=== PATIENT | female | born 2000 | race Caucasian/White ===

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

== ENCOUNTER 2021-12-24 18:13 | Emergency (ER) | payer OTHER ==
[~2021-12-24] VITALS: Ht 167.6 cm; Wt 102.5 kg
[~2021-12-24 18:13] MED LIST: ZOLOFT25 MG PO
--- NOTE | 2021-12-25 17:50 | EKG ---
[facility] [address] [facility] [place] [address] Signed Normal sinus rhythm with sinus arrhythmia Normal ECG No previous ECGs available Confirmed by MARTHA DUVALL MD ([id number]) on 12/25/2021 5:50:47 PM Electronically Signed By: MARTHA DUVALL MD 12/25/21 1750 PATIENT NAME: SERENITY POLLARD [facility] Electrocardiogram DATE OF : [birth year] PHYSICIAN: MARTHA DUVALL MD REPORT #: [id number] REPORT IS CONFIDENTIAL AND NOT TO BE RELEASED WITHOUT AUTHORIZATION
== END 2021-12-24 22:00 | disposition home or self-care (01) ==
LOC: ED 18:13
DX: R07.89 Other chest pain (principal)
CPT/HCPCS: 36415; 71045; 80053; 81001; 84484; 84703; 85025; 85379; 87088; 93005; 93010; 96374; 96375; 99285-25; J1885; J2405

== ENCOUNTER 2023-04-01 17:11 | Inpatient (IN) | payer BC, OTHER ==
[~2023-04-01] VITALS: Ht 167.6 cm; Wt 103.5 kg
[2023-04-01 17:53] LABS: BASOPHILS 0.4 % (0-2); EOSINOPHILS 4.4 % (0-6); HEMATOCRIT 39.8 % (35.0-50.0); HEMOGLOBIN 12.9 g/dL (12.0-18.0); LYMPHOCYTES 17.9 % (24-44); MCHC 32.5 g/dl (30-36); MCV 86.1 fl (81-99); MONOCYTES 3.9 % (0-12); NEUTROPHILS 73.4 % (39-80); PLATELET COUNT 355 K/uL (140-440); RBC 4.62 M/ul (4.3-5.7); RDW 13.2 (10.5-15.0)
[2023-04-01] MEDS ORDERED: APRI1 EACH PO (17:53)
[2023-04-01 18:06] LABS: ALBUMIN/GLOBULIN RATIO 0.61 (1.1-2.4); ANION GAP 12.9 (7-21); BILIRUBIN, TOTAL 0.2 ng/dL (0.2-1.0); BUN/CREATININE RATIO 13.92 (6.0-28.6); CALCIUM 8.8 mg/dL (8.5-10.1); CREATININE, SERUM 0.79 mg/dL (0.55-1.02); POTASSIUM 3.9 mmol/L (3.5-5.1); PROTEIN, TOTAL 7.9 g/dL (6.4-8.2)
[2023-04-01 18:10] LABS: BILIRUBIN, URINE NEGATIVE (negative); BLOOD/HGB, URINE TRACE-I (Negative); KETONE, URINE NEGATIVE (Negative); LEUK ESTERASE, URINE NEGATIVE (negative); NITRITE, URINE NEGATIVE (negative); PH, URINE 5.5 (5-7)
[2023-04-01] MEDS ORDERED: LACTATED RINGER'S 1,000 ML IV SCH ×2 (18:15→20:30)
[2023-04-01 18:21] LABS: BACTERIA, URINE NONE SEEN /hpf (negative); CASTS, URINE NONE SEEN \\lpf; COLLECTION TYPE, URINE CLEAN CATCH; CRYSTALS, URINE NONE SEEN (0-1+); EPITHELIAL CELLS, URINE SQUAMOUS 2+ /lpf (0-1+); RED BLOOD CELLS, URINE 0-1 /hpf (0-5); REFLEX CULTURE, URINE No (No); WHITE BLOOD CELLS, URINE 0-1 /HPF (0-5)
[2023-04-01] MEDS ORDERED: AMP/SULBACTAM SOD 3 GM VIAL IV ONE (18:22)
[2023-04-01] MEDS ORDERED: AMP/SULBACTAM SOD 3 GM in SODIUM CHLORIDE 0.9% 100 ML IV ONE (18:30)
[2023-04-01 18:57] VITALS: BP 144/93
[2023-04-01] MEDS ORDERED: ondansetron HCL 4 MG/2 ML VIAL IV PRN ×2 (19:30→20:30)
[2023-04-01] MEDS ORDERED: DEXTROSE 5% - LACTATED RINGERS 1,000 ML IV SCH (19:30)
[2023-04-01] MEDS ORDERED: HYDROmorphone HCL 1 MG/ML SYR IV PRN (19:30)
--- NOTE | 2023-04-01 19:45 | NUR ---
PATIENTS ADMISSION COMPLETE. PATIENT DENIES ANY NAUSEA. PATIENT RATES PAIN AT A 2/10 IN RLQ AND DENIES THE NEED FOR INTERVENTION AT THIS TIME. PATIENT UP TO BR IND. PATIENT BACK IN BED RESTING. PATIENTS SIGNIFICANT OTHER IS AT THE BEDSIDE. ALL QUESTIONS ANSWERED. PATIENT DENIES ANY NEEDS AT THIS TIME. CALL LIGHT IN REACH.
[2023-04-01] MEDS ORDERED: MORPHINE SULFATE 10 MG/ML VIAL IV PRN (20:30)
[2023-04-01] MEDS ORDERED: KETOROLAC TROMETHAMINE 30 MG/ML VIAL IV PRN (20:30)
[2023-04-01] MEDS ORDERED: FAMOTIDINE 20 MG/ 2 ML VIAL IV SCH (21:00)
[2023-04-01] MEDS ORDERED: HEParin SOD (PORCINE) 5,000 UNIT/0.5 ML SYR SUB-Q SCH (21:00)
[2023-04-01 21:12] VITALS: BP 137/88
--- NOTE | 2023-04-01 21:35 | NUR ---
PATIENT IS RESTING IN BED. PM MEDS GIVEN PER ORDER. PATIENT DENIES ANY PAIN OR NAUSEA. PATIENT DENIES ANY FURTHER NEEDS. CALL LIGHT IN REACH.
--- NOTE | 2023-04-01 23:44 | NUR ---
PATIENT IS RESTING IN BED WITH EYES CLOSED, RR 15. CALL LIGHT IN REACH.
[2023-04-02] VITALS (10 sets, daily range): BP systolic 112–172; BP diastolic 55–78
--- NOTE | 2023-04-02 00:11 | NUR ---
PATIENT IS RESTING IN BED WITH EYES CLOSED, RR 17. CALL LIGHT IN REACH. IV INFUSING PER ORDER
[2023-04-02] MEDS ORDERED: AMP/SULBACTAM SOD 3 GM in SODIUM CHLORIDE 0.9% 100 ML IV SCH (02:00)
--- NOTE | 2023-04-02 02:01 | NUR ---
PATIENTS SCHEDULED MEDS GIVEN PER ORDER. PATIENT DENIES ANY PAIN OR NAUSEA. PATIENT UP TO BR IND. PATIENT ABLE TO VOID. PATIENT IS BACK IN BED RESTING. PATIENT DENIES ANY FURTHER NEEDS. CALL LIGHT IN REACH.
[2023-04-02] MEDS ORDERED: AMP/SULBACTAM SOD 3 GM VIAL IV ONE (02:09)
--- NOTE | 2023-04-02 04:05 | NUR ---
PATIENT IS RESTING IN BED WITH EYES CLOSED, RR 16. CALL LIGHT IN REACH. IV INFUSING PER ORDER.
--- NOTE | 2023-04-02 07:15 | NUR ---
Spoke with Annabella and her spouse, Steve. She waiting for surgery today. She states they live in a house with minimal steps. There are no issues getting in or out of the home. They both work and she does not use any DME. Spouse wanting to know if he should take a few days off to be home with pt. I suggested he wait to decide until after the surgery and he speaks with Dr. Zarate. They deny any needs or issues and plan for pt to dc to home when cleared following surgery.
--- NOTE | 2023-04-02 07:35 | NUR ---
report from Maximo FISCHER, pt resting in room denies needs at this time, at side. discussed plan of care and upcoming surgery. vitals taken, jewlery removed, call light in reach - confirm npo.
--- NOTE | 2023-04-02 08:59 | NUR ---
abx fusing in iv and pt up for pre op wipe down and linen change. denies needs.
--- NOTE | 2023-04-02 09:00 | NUR ---
PRESURGICAL WIPEDOWN COMPLETE USING CHG WIPES. SDS ON. AT BEDSIDE. JEWELRY IN LOCKBOX. CALL LIGHT IN EASY REACH
[2023-04-02] MEDS ORDERED: LACTATED RINGER'S 1,000 ML IV ONE (09:15)
[2023-04-02] MEDS ORDERED: ondansetron HCL 4 MG/2 ML VIAL ONE (09:15)
[2023-04-02] MEDS ORDERED: SUGAMMADEX SODIUM 200 MG/2 ML ML ONE (09:15)
[2023-04-02] MEDS ORDERED: ROCURONIUM BROMIDE 50 MG/5 ML SYR ONE ×2 (09:15→10:29)
[2023-04-02] MEDS ORDERED: FAMOTIDINE 20 MG/ 2 ML VIAL ONE (09:15)
[2023-04-02] MEDS ORDERED: SUCCINYLCHOLINE IN 0.9% NACL 200 MG/10 ML SYRINGE ONE ×2 (09:15→11:27)
[2023-04-02] MEDS ORDERED: MIDAZOLAM HCL 2 MG/2 ML VIAL ONE (09:15)
[2023-04-02] MEDS ORDERED: LIDOCAINE HCL 4% 5 ML AMP ONE (09:15)
[2023-04-02] MEDS ORDERED: KETOROLAC TROMETHAMINE 30 MG/ML VIAL ONE (09:15)
[2023-04-02] MEDS ORDERED: DEXAMETHASONE SOD PHOS 4 MG/ML VIAL ONE (09:15)
[2023-04-02] MEDS ORDERED: propofoL 200 MG/20 ML VIAL ONE (09:15)
[2023-04-02] MEDS ORDERED: fentaNYL citrate 100 MCG/2 ML VIAL ONE (09:15)
[2023-04-02] MEDS ORDERED: METOCLOPRAMIDE HCL 10 MG/2 ML SDV ONE (09:15)
--- NOTE | 2023-04-02 09:25 | NUR ---
PT TO OR WITH Bernice huertsa, strait tubing with abx fusing left arm and scds on in pt own bed. dr cooley here, press shop supervisor azalea noted pt to return post op to room 116 med surg. belongings including jewlery in blue cup to room 116. accompanied pt to surg. dept.
[2023-04-02] MEDS ORDERED: droPERidol 5 MG/2 ML VIAL ONE (09:59)
--- NOTE | 2023-04-02 10:19 | NUR ---
UR CLINICAL REVIEW 2 [place] FOR [facility] PPO INPT 04/01/23 @ 1823 YES ORDER MATCHES AWAITING AUTH REVIEW DISCHARGE TO HOME WHEN STABLE 04/04/23
[2023-04-02] MEDS ORDERED: MORPHINE SULFATE 10 MG/ML VIAL ONE (10:20)
[2023-04-02] MEDS ORDERED: SEVOFLURANE 250 ML BTL ONE (10:29)
--- NOTE | 2023-04-02 10:39 | NUR ---
ROUNDS. PT GONE FOR PROCEDURE. PROVIDED PRAYER. LEFT PRAYER CARD AND GUIDEPOST.
[2023-04-02] MEDS ORDERED: droPERidol 5 MG/2 ML VIAL IV PRN (10:45)
[2023-04-02] MEDS ORDERED: NALOXONE HCL 0.4 MG SYR IV PRN (10:45)
[2023-04-02] MEDS ORDERED: ondansetron HCL 4 MG/2 ML VIAL IV PRN (10:45)
[2023-04-02] MEDS ORDERED: MORPHINE SULFATE 10 MG/ML VIAL IV PRN (10:45)
[2023-04-02] MEDS ORDERED: fentaNYL citrate 100 MCG/2 ML VIAL IV PRN (10:45)
[2023-04-02] MEDS ORDERED: PROCHLORPERAZINE EDISYLATE 10 MG/2 ML VIAL IV PRN (10:45)
[2023-04-02] MEDS ORDERED: IBLOOD GLUCOSE TEST STRIP 1 EA TEST VI PRN (10:45)
[2023-04-02] MEDS ORDERED: METOCLOPRAMIDE HCL 10 MG/2 ML SDV IV PRN (10:45)
--- NOTE | 2023-04-02 11:59 | NUR ---
REPORT RECEIVED FROM AALIYAH PADILLA IN CCU.
--- NOTE | 2023-04-02 12:28 | NUR ---
04/02/23 1228 Emma King 1201 PT ARRIVED IN PACU NON RESPONSIVE TO NOXIOUS STIMULI WITH OPA IN PLACE. CHIN LIFT HELD BY RN. 1217 PT REACTIVE. OPA REMOVED. 1225 OXYGEN REMOVED. SATS 94% ON RA. NO C/O'S. RILEY INTACT WITH BULB SUCTION.
[2023-04-02] MEDS ORDERED: OXYCODONE/APAP 7.5/325 TAB PO PRN (13:15)
[2023-04-02] MEDS ORDERED: ACETAMINOPHEN 500 MG TAB PO PRN (13:15)
[2023-04-02] MEDS ORDERED: IBUPROFEN 600 MG TAB PO PRN (13:15)
--- NOTE | 2023-04-02 13:37 | HP ---
[facility] [address], [place] [address] Signed ADMISSION DATE: 04/01/2023 REASON FOR ADMISSION: Acute perforated appendicitis. 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 She is accompanied by her , a local nursery manager. The patient has had essentially months of persistent right lower abdominal pain, which has not really improved. She has had no sign of systemic toxicity or other manifestations of the illness. She is a patient of OBINNA Ivey. She underwent a CT scan of the abdomen today under the direction of OBINNA Ivey, which showed findings highly consistent with ruptured appendicitis with a 4.6 cm phlegmon or developing abscess in the right lower abdomen. My examination of the films shows marked inflammation in the area of the cecum, likely a posterior positioned appendix. Close review of report also describes the inflammation posterior to the cecum in the process contiguous with the base of the appendix with mild cecal wall thickening and mildly dilated distal ileum, which was likely reactive. She is admitted for further evaluation and care. PAST MEDICAL HISTORY: Rather unremarkable. She has not had abdominal surgery in the past. Her test is negative at this time. Last menstrual period was March 23, 2023. She has had tonsillectomy in the past. SOCIAL HISTORY: She has never smoked. Denies alcohol use and denies any illicit drug use. 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 They have no children. They have been about a year. ALLERGIES: She has no known drug allergies. MEDICATIONS: Her only medication is a control pill. REVIEW OF SYSTEMS: She denies any shortness of breath or chest pain. She currently is not distressed by pain particularly. Electronically Signed By: JOSEPHINE SLOAN MD 04/02/23 1337 PATIENT NAME: SERENITY SALAZAR HISTORY AND PHYSICAL DATE OF : 00 REPORT #: [id number] PHYSICIAN: JOSEPHINE SLOAN MD PCP: KARINA DAMON NP REPORT IS CONFIDENTIAL AND NOT TO BE RELEASED WITHOUT AUTHORIZATION [facility] [address], [place] [address] Signed PHYSICAL EXAMINATION: GENERAL: Pleasant white woman who does not look systemically toxic. VITAL SIGNS: Initial pulse was 112, temperature 98.2, blood pressure 142/82, respirations 18, O2 saturation 98% on room air. NECK: Trachea is midline. CHEST: Clear. HEART: Regular without murmur. ABDOMEN: Obese, but generally soft. Rovsing sign is positive. She does have tenderness at McBurney's point, but is not severe. Obturators sign is equivocal. Heel tap is equivocal. EXTREMITIES: Show no clubbing, cyanosis, or edema. LABORATORY DATA: As shown notably show white count of 11.8, hematocrit 39.8, platelets 355,000. Chem profile essentially normal. Urinalysis essentially negative. ASSESSMENT AND PLAN: It is highly probable the patient has had chronic appendicitis for a number of weeks and possibly even months and likely the appendix is in the retrocecal position. She has progressed to what is likely a necrotic appendix with perforation and inflammatory fluid in the region. Central presentation is commonly subtle and without profound peritoneal findings. We discussed this in detail with the use of illustrations on the white board. She has been initiated on Unasyn antibiotic, made n.p.o. and fluids administered. Under the circumstances, we will plan to do laparoscopy and hopefully a laparoscopic resection of the appendix and likely placement of drain tomorrow. An open procedure may be required. I discussed with her the risk of bleeding, infection, need for open surgery, need for prolonged antibiotic therapy, and of course the possibility, however, remote of an inability to provide appendectomy, but provide only drainage if tissues are too distorted and appendix cannot be readily identified. This would be unlikely, it is admitted. She understands all this and wished to proceed. MD MARTIN [place]/ARRONL /[id number] Electronically Signed By: JOSEPHINE SLOAN MD 04/02/23 1337 PATIENT NAME: SERENITY SALAZAR HISTORY AND PHYSICAL DATE OF : 00 REPORT #: [id number] PHYSICIAN: JOSEPHINE SLOAN MD PCP: KARINA DAMON NP REPORT IS CONFIDENTIAL AND NOT TO BE RELEASED WITHOUT AUTHORIZATION [facility] [address] [place] [address] Signed cc: MD Karina Wilkerson FNP Copies: SILVESTRE NICK MD ~ Electronically Signed By: JOSEPHINE SLOAN MD 04/02/23 1337 PATIENT NAME: SERENITY SALAZAR [facility] HISTORY AND PHYSICAL DATE OF : 00 REPORT #: [id number] PHYSICIAN: JOSEPHINE SLOAN MD PCP: KARINA DAMON NP REPORT IS CONFIDENTIAL AND NOT TO BE RELEASED WITHOUT AUTHORIZATION
--- NOTE | 2023-04-02 14:14 | NUR ---
FULL ASSESSMENT COMPLETE AND DOCUMENTED IN THE CHART. PATIENT IS DROWSY AND WANTING TO SLEEP. PATIENT IS ON ROOM AIR WITH CPOX AT THE BEDSIDE. PATIENT LUNG SOUNDS ARE CLEAR BILATERALLY IN ALL LUNG BOYD. CARDIAC ASSESSMENT WITH NORMAL S1 AND S2. RADIAL PULSES ARE STRONG BILATERALLY. PATIENT WITH SCDS ON. BOWEL TONES ARE ACTIVE IN ALL FOUR QUADRANTS. LAP SITES WITH SUTURES AND DRY DRAINAGE. TWO DRESSINGS ON THE LEFT SIDE OF THE ABDOMEN ARE CLEAN AND DRY. RILEY DRAIN IS IN PLACE AND DRAINING SANGUINOUS FLUID AT THIS TIME. PATIENT WITH PAIN RATED 2/10 IN THE ABDOMEN AND NOT REQUESTING PAIN MEDICATION AT THIS TIME. PATIENT SENSATION IS INTACT. PATIENT WITH NO COMPLAINTS OF NUMBNESS AND TINGLING. PATIENT IV SITES ARE CLEAN, DRY, AND INTACT. PATIENT IV ON THE RIGHT HAND IS SALINE LOCKED. IV IN THE LAC HAS CONTINUOUS FLUIDS AT THIS TIME. PATIENT STATED NO FURTHER NEEDS AT THIS TIME. CALL LIGHT AND PERSONAL BELONGINGS ARE WITHIN REACH. CALL LIGHT PERSONAL BELONGINGS ARE WITHIN REACH.
--- NOTE | 2023-04-02 14:27 | NUR ---
SECOND SET OF POST OP VITALS ARE COMPLETE AND DOCUMENTED IN THE CHART.
--- NOTE | 2023-04-02 16:07 | NUR ---
PATIENT GIVEN PRN TYLENOL FOR PAIN. PATIENT ABLE TO AMBULATE TO THE BATHROOM AND ABLE TO VOID. RILEY DRAIN EMPTIED. IV FLUIDS INFUSING AT THIS TIME. PATIENT BLINDS OPEN TO ALLOW NATURAL LIGHT. PATIENT WITH COMPLAINTS OF THROAT FEELING "NUMB OR SORE". PATIENT EDUCATED ON THE USE OF IS AND HOW THE THROAT CAN BE SORE AFTER A PROCEDURE. CPOX IS AT THE PATIENTS BEDSIDE. PATIENT EXPRESSED UNDERSTANDING. PATIENT ABLE TO SWALLOW TYLENOL WITH NO DIFFICULTY. PATIENT EDUCATED ON THE IMPORTANCE OF WALKING LATER THIS EVENING. PATIENT EXPRESSED UNDERSTANDING. PATIENT STATED NO FURTHER NEEDS AT THIS TIME. CALL LIGHT AND PERSONAL BELONGINGS ARE WITHIN REACH.
--- NOTE | 2023-04-02 16:25 | NUR ---
PATIENT IS SITTING UPRIGHT IN BED. PATIENT STATED HER THROAT FEELS BETTER AFTER ASKING. PATIENT STATED NO FURTHER NEEDS AT THIS TIME. CALL LIGHT AND PERSONAL BELONGINGS ARE WITHIN REACH.
--- NOTE | 2023-04-02 18:49 | NUR ---
PATIENT AMBULATED IN THE HALLWAY A BIG LAP. PATIENT TOLERATED WELL. PATIENT RATED PAIN A 3/10. PATIENT STATED SHE HAD THE MOST PAIN WHEN SHE GOT BACK INTO BED. PATIENT IS AT THE BEDSIDE. PATIENT STATED NO FURTHER NEEDS AT THIS TIME. CALL LIGHT AND PERSONAL BELONGINGS ARE WITHIN REACH.
--- NOTE | 2023-04-02 19:52 | NUR ---
REPORT RECEIVED FROM DAY SHIFT RN. PATIENT RESTING IN BED WITH AT BEDSIDE. PATIENT HAS NO CURRENT NEEDS. CALL LIGHT IN REACH.
--- NOTE | 2023-04-02 20:45 | NUR ---
PATIENT RESTING IN BED. VS AND I&Os OBTAINED AND RECORDED. SCHEDULED MEDICATION ADMNISTERED. PATIENT UP TO BATHROOM INDEPENDENTLY TO VOID. IV ABX INFUSING PER ORDER. PATIENTS IN ROOM. PATIENT LAP SITES HAVE MINIMAL DRAINAGE. NEW GOWN PROVIDED. PATIENT HAS NO FURTHER NEEDS. CALL LIGHT IN REACH.
--- NOTE | 2023-04-02 21:40 | NUR ---
PATIENT RESTING IN BED WITH A BEDSIDE. ASSESSMENT COMPLETE. LAP SITES WITH MINIMAL DRAINAGE. RILEY DRAIN, DRAINING RED COLORED FLUID. WARM BLANKET PROVIDED. PATIENT REPORTS NO FURTHER NEEDS. CALL LIGHT IN REACH. PATIENT EDUCATED TO CALL IF SHE NEEDS ANYTHING.
--- NOTE | 2023-04-02 23:32 | NUR ---
PATIENT RESTING IN BED ON BACK WITH EYES CLOSED. RESPIRATIONS EVEN AND UNLABORED. CALL LIGHT IN REACH.
[2023-04-03] VITALS (8 sets, daily range): BP systolic 113–128; BP diastolic 67–77
--- NOTE | 2023-04-03 00:14 | NUR ---
CALL LIGHT ANSWERED. IV PUMP ALARMING. NEW BAG IV FLUID INFUSING PER ORDER. PATIENT REPORTS NO FURTHER NEEDS. CALL LIGHT IN REACH.
--- NOTE | 2023-04-03 02:10 | NUR ---
PATIENT RESTING IN BED. VS AND I&Os OBTAINED AND RECORDED. NEW BAG IV ABX INFUSING PER ORDER. PATIENT UP TO BATHROOM INDEPENDENTLY TO VOID. PATIENT BACK TO BED. SCDs IN PLACE. ASSESSMENT COMPLETE. PATIENT REPORTS "TOLERABLE PAIN". PATIENT SAYS PAIN IN WORSE WITH MOVEMENT. PATIENT REPORTS NO FURTHER NEEDS. CALL LIGHT IN REACH.
--- NOTE | 2023-04-03 03:50 | NUR ---
PATIENT RESTING IN BED ON BACK WITH EYES CLOSED. RESPIRATIONS EVEN AND UNLBABORED. CALL LIGHT IN REACH.
--- NOTE | 2023-04-03 04:45 | NUR ---
PATIENT RESTING IN BED WITH EYES CLOSED. RESPIRATIONS EVEN AND UNLABORED. CALL LIGHT IN REACH.
--- NOTE | 2023-04-03 06:37 | NUR ---
PATIENT RESTING IN BED. PATIENT UP TO BATHROOM INDEPENDENTLY TO VOID. PATIENT BACK TO BED. VS AND I&Os OBTAINED AND RECORDED. PATIENT REPORTS 6/10 PAIN IN ABD. PRN PAIN MEDICATION ADMINISTERED. FRESH WATER PROVIDED. IN ROOM. PATIENT HAS NO FURTHER NEEDS. CALL LIGHT IN REACH.
--- NOTE | 2023-04-03 07:43 | NUR ---
PT RESTING IN BED, EYES OPENED. RESTING IN CHAIR NEXT TO BED. PT STATES PAIN THIS MORNING IS MUCH BETTER. DENIES ANY NEEDS AT THIS TIME. APPEARS COMFORTABLE. ALL PT CARE NEEDS MET AT THIS TIME. CALL LIGHT WITHIN REACH.
--- NOTE | 2023-04-03 09:59 | NUR ---
PT SITTING UP IN CHAIR WATCHING TV AT THIS TIME. (R)HAND IV REMOVED, PAINFUL WITH FLUSHING/MOVEMENT. IV FLUIDS INFUSING AT THIS TIME. PT STATES SHE WALKED A LAP AROUND THE HOSPITAL UNIT. PAIN 2/10 AT THIS TIME, DENIES NAUSEA. ALL PT CARE NEEDS MET, DENIES NEEDS AT THIS TIME. CALL LIGHT WITHIN REACH.
--- NOTE | 2023-04-03 10:07 | NUR ---
MED REC COMPLETE
[2023-04-03] MEDS ORDERED: CIPROFLOXACIN 500 MG TAB PO SCH (13:30)
[2023-04-03] MEDS ORDERED: metroNIDAZOLE 250 MG TAB PO SCH (15:00)
--- NOTE | 2023-04-03 15:24 | NUR ---
PT SITTING UP IN CHAIR, UPDATE GIVEN TO PT/ ABOUT DC PLANS FOR TOMORROW IT LOOKS LIKE. IV FLUIDS DC'D, TRANSITIONED TO ORAL ABX AND THOSE HAVE BEEN GIVEN. PT VOIDING WITHOUT ANY ISSUES, REINFORCED MD WOULD LIKE PT TO AMBULATE MUCH POSSIBLE IN THE HALLWAYS, INCREASE MOBILITY. ALL PT CARE NEEDS MET AT THIS TIME, CALL LIGHT WITHIN REACH.
--- NOTE | 2023-04-03 17:57 | NUR ---
PT STATES HER PAIN IS 4/10 AT THIS TIME, SLOWLY IMPROVING. C/O GAS PAIN, WARM PACK PROVIDED WITH WARM BLANKET, APPLIED TO (R) SHOULDER THE GAS PAIN IS RADIATING UP HER SHOULDER. EDUCATION PROVIDED TO PT REGARDING GAS PAIN POST-OP, ADVISED TO WALK THE HALLWAYS, PT STATES SHE HAS BEEN DOING LAPS IN ROOM THIS EVENING. PT UNDERSTANDS AND AGREES. ALL PT CARE NEEDS MET AT THIS TIME, CALL LIGHT WITHIN REACH.
--- NOTE | 2023-04-03 19:33 | NUR ---
REPORT RECEIVED FROM DAY SHIFT RN. PATIENT RESTING IN CHAIR WITH IN ROOM. WARM PACK PROVIDED. PATIENT HAS NO OTHER CURRENT NEEDS. CALL LIGHT IN REACH.
--- NOTE | 2023-04-03 20:27 | NUR ---
IN ROOM TO COLLECT VS AND I&O'S PER REQUEST OF PRIMARY RN. VSS, pt IN GOOD SPIRITS. QUESTIONS ANSWERED REGARDING RILEY DRAIN, 5MLS OUTPUT NOTED. SEROSANGUINEOUS IN COLOR. FRESH WATER PROVIDED TO BOTH pt AND , CALL LIGHT IN REACH. NO ADDITIONAL NEEDS OR CONCERNS VERBALIZED.
[2023-04-03] MEDS ORDERED: FAMOTIDINE 20 MG TAB PO SCH (21:00)
--- NOTE | 2023-04-03 21:00 | NUR ---
PATIENT RESTING IN CHAIR. SCEDULED MEDICATIONS ADMINISTERED. WARM PACK PROVIDED. ASSESSMENT COMPLETE. BOWEL TONES ACTIVE. ABD TENDER. PATIENT HAS NO FURTHER NEEDS. CALL LIGHT IN REACH. IN ROOM.
--- NOTE | 2023-04-03 22:30 | NUR ---
PATIENT RESTING IN BED ON BCAK WITH EYES CLOSED. RESPIRATIONS EVEN AND UNLABORED. AT BEDSIDE. CALL LIGHT IN REACH.
[2023-04-04 00:10] VITALS: BP 105/54
--- NOTE | 2023-04-04 00:43 | NUR ---
ROUNDING ON PATIENT. PATIENT SITTING ON EDGE OF BED STATING "I THOUGHT I WAS GOING TO PASS OUT". PATIENT REPORTED COMING BACK FROM THE BATHROOM WHEN THIS OCCURED. PATIENT THEN STATED "I THINK I AM GOING TO THROW UP". EMESIS BAG PROVIDED. PRN NAUSEA MEDICATION ADMINISTERED, SEE MAR. PATIENT BACK IN BED. VSS. REQUESTING BS CHECK. PATIENT BS 113. FRESH APPLE JUICE AND WATER PROVIDED. PRN PAIN MEDICAITON ADMINISTERED PER PATIENT REQUEST. NEW BAG IV FLUID INFUSING PER ORDER. NO FURTHER NEEDS. CALL LIGHT IN REACH.
--- NOTE | 2023-04-04 01:34 | NUR ---
PATIENT RESTING IN BED ON BACK WITH EYES CLOSED. RESPIRATIONS EVEN AND UNLABORED. CALL LIGHT IN REACH. RESTING IN CHAIR AT BEDSIDE.
--- NOTE | 2023-04-04 03:34 | NUR ---
PATIENT RESTING IN BED ON BACK. NO CURRENT NEEDS NOTED. CALL LIGHT IN REACH.
[2023-04-04 05:35] VITALS: BP 121/60
--- NOTE | 2023-04-04 05:38 | NUR ---
PATIENT RESTING IN BED. PATIENT UP TO BATHROOM WITH MINIMAL SBA TO VOID. PATIENT BACK TO BED. YOSELYN WELL. VS AND I&Os OBTAINED AND RECORDED. ASSESSMENT COMPLETE. PATIENT ABD DRESSING C/D/I. PATIENT RILEY DRAINED 5mL OF RED DRAINAGE. PATIENT HAS NO FURTHER NEEDS. AT BEDSIDE. CALL LIGHT IN REACH.
--- NOTE | 2023-04-04 06:37 | NUR ---
call light answered, pt up sba to bathroom to void and back to bed, voided 400mls. pt steady on feet and deneis dizzy/lightheadedness when asked-steady on feet. call light in reach. remains in room. no additional needs verbalized when asked. new heat pack also provided for gas pain in right shoulder.
--- NOTE | 2023-04-04 06:41 | NUR ---
THIS RN CALLED MD IN REGARDS OF PATIENTS IV FLUID ORDER. MD STATES TO CONTINUE IV FLUID AND TO "SALINE LOCK HER IF SHE TOLERATES BREAKFAST".
--- NOTE | 2023-04-04 08:45 | NUR ---
recieved pt report at 0720. pt was in bed with family in room. currently in bed with family. no concerns or requests at this time call light within reach
[2023-04-04 08:48] VITALS: BP 138/72
--- NOTE | 2023-04-04 11:07 | NUR ---
ROUNDS. PT IN BED; EXPRESSED POSITIVITY AND HOPEFULNESS. FACILITATED STORY-TELLING; LISTENED EMPATHETICALLY; OFFERED HOSPITALITY; PROVIDED PRAYER. PT EXPRESSED APPRECIATION.
[2023-04-04] MEDS ORDERED: CIPROFLOXACIN500 MG PO (11:37)
[2023-04-04] MEDS ORDERED: ACETAMINOPHEN500 MG PO (11:37)
[2023-04-04] MEDS ORDERED: METRONIDAZOLE250 MG PO (11:37)
[2023-04-04] MEDS ORDERED: IBUPROFEN600 MG PO (11:37)
--- NOTE | 2023-04-05 13:43 | DS ---
[facility] [address], [place] [address] Signed ADMISSION DATE: 04/01/2023 DISCHARGE DATE: 04/04/2023 REASON FOR ADMISSION: Perforated appendicitis (chronic) with retrocecal abscess. HISTORY OF PRESENT ILLNESS: This is a 22-year-old white woman, who has had at least two months of severe and progressive right lower abdominal pain. 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 She has had no sign of systemic toxicity. She does recount an episode two months previously with severe right lower abdominal pain, which she ignored and which ultimately became more tolerable. She was seen by OBINNA Ivey her primary provider who performed a CT scan which showed a 4.6 cm phlegmon or abscess in the retrocecal area of the right side. She was directed to the emergency room where she was thoroughly evaluated for this and found to have vague tenderness in the area and a white count of 11.8. Urinalysis was normal. It is notable that the patient has had persistent right-sided abdominal pain for at least two months. PERTINENT PHYSICAL EXAMINATION: GENERAL: On admission showed an obese white woman who does not look systemically toxic. VITAL SIGNS: Initial pulse was 112, temperature 98.2, blood pressure 142/82, respirations 18, O2 saturation 98% on room air. CHEST: Clear. HEART: Regular without murmur. ABDOMEN: Obese, but soft. Rovsing sign was positive. She does have tenderness at but not severe. Obturator sign is equivocal. Heel tap equivocal. HOSPITAL COURSE: She was given fluid resuscitation, Unasyn antibiotic and taken for operation on April 02, 2023. A laparoscopic approach was intended, though notably may have been converted to open operation, she was fully aware of that. She was found to have a dense firm phlegmon in the retrocecal area on the right side, so dense that the cecum and right colon could not be mobilized from a laparoscopic perspective and on that basis, she was converted to an open operation through a McBurney incision in the right lower quadrant. The operation was prolonged, complicated, and difficult, but ultimately the retrocecal area could be encountered showing a retroperitoneal abscess, chronic inflammatory change and dense matting of the appendix. Complete appendectomy was incidentally performed as well as placement of a drain in the area of the well-formed scar tissue area. Notably, her right ovary and tube were normal. Electronically Signed By: JOSEPHINE SLOAN MD 04/05/23 1343 PATIENT NAME: SERENITY SALAZAR DISCHARGE SUMMARY DATE OF : 00 REPORT #: [id number] PHYSICIAN: JOSEPHINE SLOAN MD PCP: LAURA DAMON NP REPORT IS CONFIDENTIAL AND NOT TO BE RELEASED WITHOUT AUTHORIZATION [address] [address] Signed She was maintained on Unasyn and transitioned to oral antibiotics Cipro and Flagyl. By the day of discharge, she is ambulating well, tolerating a regular diet. The drainage showing only serosanguineous fluid and no purulence. She will be discharged with a drain in place anticipating its removal in the coming week. She will additionally continue with Cipro and Flagyl antibiotics orally. She is encouraged to walk on a daily basis, but should lift no more than 20 pounds for the next two weeks. It is anticipated she will be going on a vacation in the [facility] later next week, which is certainly acceptable. DISCHARGE MEDICATIONS: Will include: 1. Cipro 500 mg p.o. b.i.d. #10. 2. Flagyl 250 mg p.o. t.i.d. #15. 3. Ibuprofen 600 mg p.o. q.6 hours as needed for pain, #30 . 4. Tylenol 500 mg two tablets p.o. q.6 hours as needed for pain #60. She will continue with her usual control pill on a daily basis. DISCHARGE DIAGNOSES: 1. 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 2. Obesity. FOLLOWUP PLAN: She will see me on next week for drain removal. MD MARTIN [place]/ARRONL /[id number] cc: OBINNA Ivey Electronically Signed By: JOSEPHINE SLOAN MD 04/05/23 1343 PATIENT NAME: SERENITY SALAZAR DISCHARGE SUMMARY DATE OF : 00 REPORT #: [id number] PHYSICIAN: JOSEPHINE SLOAN MD PCP: LAURA DAMON NP REPORT IS CONFIDENTIAL AND NOT TO BE RELEASED WITHOUT AUTHORIZATION [address] [address] Signed Lazarus Nick MD Copies: LAZARUS NICK MD ~ Electronically Signed By: JOSEPHINE SLOAN MD 04/05/23 1343 PATIENT NAME: SERENITY SALAZAR [facility] DISCHARGE SUMMARY DATE OF : 00 REPORT #: [id number] PHYSICIAN: JOSEPHINE SLOAN MD PCP: LAURA DAMON NP REPORT IS CONFIDENTIAL AND NOT TO BE RELEASED WITHOUT AUTHORIZATION
--- NOTE | 2023-04-05 13:43 | OR ---
[facility] [address], [place] [address] Signed DATE OF OPERATION: 04/02/2023 SURGEON: Josephine Sloan MD PREOPERATIVE DIAGNOSIS: Perforated retrocecal appendicitis, chronic pain (obesity). POSTOPERATIVE DIAGNOSES: 1. Retroperitoneal abscess secondary to chronic perforated retrocecal appendicitis. 2. Obesity. PROCEDURES: 1. Laparoscopy with conversion to open retroperitoneal abscess drainage. 2. Open appendectomy. 3. Placement of retroperitoneal drain. ANESTHESIA: General endotracheal, Josephine Sanford CRNA and local 10 mL of 0.25% Marcaine with epinephrine. 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 She has had several months of increasing and persistent unrelenting right lower abdominal pain. Her primary provider, OBINNA Ivey obtained a CT scan of the abdomen yesterday where she was noted to have a diagnosis of perforated retrocecal appendicitis. The patient is not systemically toxic, only chronically painful. She was admitted, given Unasyn antibiotic, fluid resuscitated now to undergo exploration of the retroperitoneum, drainage of abscess as appropriate, appendectomy as appropriate and so on. Laparoscopic approach will be attempted. The risk of bleeding, infection, failure to provide drainage, recurrent problems, and need for open procedure were reviewed with the patient and her in detail. They understand and wished to proceed. FINDINGS: A very dense process was noted in the retrocecal area. Despite every attempt to do so, a laparoscopic approach was simply not possible and on that basis, conversion to open operation was undertaken. This was a challenge as well, however. The dense process in the retrocecal area include a small amount of purulence for which Gram stain and cultures were obtained. Firm fibrotic dense matting of a retrocecal appendix to the retroperitoneum was noted. There was no clear evidence of malignancy in any way. Electronically Signed By: JOSEPHINE SLOAN MD 04/05/23 3603 PATIENT NAME: SERENITY SALAZAR OPERATIVE REPORT DATE OF : 00 REPORT #: [id number] PHYSICIAN: JOSEPHINE SLOAN MD PCP: KARINA DAMON NP REPORT IS CONFIDENTIAL AND NOT TO BE RELEASED WITHOUT AUTHORIZATION [facility] [address], [place] [address] Signed Complete appendectomy was performed and a drain placed after irrigation. There were no complications. Of special note, her right fallopian tube and ovary were not involved in the process and appeared to be free of any scarring, inflammation, or distortion. DESCRIPTION OF PROCEDURE: The patient was brought to the operating room, given a general endotracheal anesthetic. Preoperative antibiotic Unasyn was given. Sequential compression device stockings were used and heparin subcutaneously administered. The abdomen was prepared with chlorhexidine solution and draped sterilely. An infraumbilical incision was made and using an open Guicho cannula technique, the abdomen was entered and pneumoperitoneum achieved to a level of 14 mmHg with carbon dioxide gas. Intra-abdominal inspection showed no sign of ascites or carcinomatosis. There was no sign of inflammatory fluid in the right lower quadrant. An epigastric 12 mm port was then placed and the camera was placed to that site. With single hand manipulation, the right lower abdominal area was manipulated showing dense adhesions of small bowel to the right lower quadrant pelvic wall and the cecum similarly matted to the retroperitoneum. The mid right colon appeared reasonably soft. A 5 mm right lower quadrant incision and trocar was made and with two hand manipulation attempts to mobilize the cecum and small bowel were undertaken. Various approaches to the site were undertaken, but still the dense fibrotic process was simply not able to be mobilized with high hazard of retroperitoneal injury. On that basis, the trocars were removed and plans made for conversion to open operation. It was considered possible that a midline incision would be used, however, given her obesity, hazard of incisional hernia and so forth, a conventional McBurney's incision was deemed more advisable. The site of the appendix and cecum had been well delineated laparoscopically and a transverse incision was made in continuity with the right lower quadrant port site. Dissection was carried through the thick abdominal pannus with electrocautery. The external oblique, internal oblique and transversus layers were incised along the fibers. Subsequently, she did require transection of the portion of the right anterior rectus sheath and the rectus muscle for better exposure. The placement of the incision was optimal directly over the cecum in the process in question. Digital manipulation was undertaken showing very firm and fibrotic retroperitoneal process. Various maneuvers were used to more fully mobilize the cecum. Ultimately, the small bowel was freed from the abdominal wall as was the more proximal cecum. The appendix itself was not readily visible, but with palpation medially and in the retroperitoneum dense hard matted process could be identified. Using extreme care, the fibrotic adhesions associated with the cecum were freed and using blunt dissection, a slick fibrotic capsule to the process identified. Ultimately, the appendix could be identified and a small amount of purulence was noted. Gram stain and cultures were obtained. This would represent a retroperitoneal abscess with chronic perforated appendicitis. Electronically Signed By: JOSEPHINE SLOAN MD 04/05/23 1343 PATIENT NAME: SERENITY SALAZAR OPERATIVE REPORT DATE OF : 00 REPORT #: [id number] PHYSICIAN: JOSEPHINE SLOAN MD PCP: KARINA DAMON NP REPORT IS CONFIDENTIAL AND NOT TO BE RELEASED WITHOUT AUTHORIZATION [facility] [address], [place] [address] Signed With meticulous care, the appendix could be bluntly from the retroperitoneum ultimately identified fully and grasped with Annemarie clamp. Careful manipulation of the appendix from the retroperitoneum was undertaken ultimately identifying its mesoappendix which was quite firm and fibrotic, this was freed quite fully as well. The vessels within it had been thrombosed. At the very base of the appendix, which was rather narrow in contrast to the bulk of the appendix, which was firm and rubbery, reasonably normal tissue was identified. Two large clips were applied to the base of the appendix and the appendix was transected. A few small clips were applied to small blood vessels in the region as well. Irrigation was undertaken more fully. Complete appendectomy has been performed so far as can be told and the two clips are secured flushed at the base of the cecum in the appendiceal junction. Through a separate stab incision, a 7 mm flat Candido was placed in the firm fibrotic cavity and secured to the skin with nylon suture and later attached to bulb suction. Plans were then made for closure. After considerable irrigation and replacement of omentum over the right lower abdomen and inspection of the right ovary and tube finding this to be non-inflamed and not involved in the process at all, closure was undertaken. The posterior sheath and its attended peritoneum were reapproximated with running 2-0 PDS suture. The transversus abdominis layers were similarly reapproximated as was the internal oblique and ultimately the external oblique, irrigating each layer with sterile saline. The anterior rectus sheath and posterior rectus sheath which had to be incised to provide adequate exposure were similarly closed of course. Subcutaneous tissues irrigated and the skin closed with running subcuticular 3-0 Vicryl. The trocar sites, which had already been closed including the fascial reapproximation in the infraumbilical site with 0 Vicryl were then closed with interrupted 3-0 Vicryl as well. Steri-Strips were applied. Next, dressing was applied to the right lower quadrant main incision. The patient was ultimately extubated and transferred to recovery room in good condition having suffered no complications. Sponge, needle, and instrument counts were reported as correct x2. The operation was prolonged, complicated and difficult lasting 2 hours (8 a.m. to 12:05 p.m.) MD MARTIN [place]/ARRONL /[id number] Electronically Signed By: JOSEPHINE SLOAN MD 04/05/23 1343 PATIENT NAME: SERENITY SALAZAR OPERATIVE REPORT DATE OF : 00 REPORT #: [id number] PHYSICIAN: JOSEPHINE SLOAN MD PCP: KARINA DAMON NP REPORT IS CONFIDENTIAL AND NOT TO BE RELEASED WITHOUT AUTHORIZATION [facility] [address] [place] [address] Signed cc: MD Karina Wilkerson FNP Copies: SILVESTRE NICK MD ~ Electronically Signed By: JOSEPHINE SLOAN MD 04/05/23 1343 PATIENT NAME: SERENITY SALAZAR [facility] OPERATIVE REPORT DATE OF : 00 REPORT #: [id number] PHYSICIAN: JOSEPHINE SLOAN MD PCP: KARINA DAMON NP REPORT IS CONFIDENTIAL AND NOT TO BE RELEASED WITHOUT AUTHORIZATION
--- NOTE | 2023-04-06 12:03 | PATH ---
[facility] [address] [place], [place] [address] Signed SPECIMEN(S): A RUPTURED APPENDIX SPECIMEN SOURCE: A. RUPTURED APPENDIX CLINICAL HISTORY: Ruptured appendix with abscess FINAL PATHOLOGIC DIAGNOSIS: Appendix, appendectomy: - Disrupted appendix with acute appendicitis and features of delayed/interval appendicitis BRP MICROSCOPIC EXAMINATION: Histologic sections of all submitted blocks are examined by light microscopy. These findings, together with the gross examination, support the pathologic diagnosis. GROSS DESCRIPTION: The specimen, labeled and designated "rosalina Salazar," is received in formalin and consists of Specimen: Appendix with mesoappendix. Dimensions: 6.5 x 0.6 to 0.9 cm. Serosa: Violaceous, focally congested and almost entirely covered with fibrous adhesions. Defect: Transmural defect that measures 0.1 cm in diameter is identified. Inking: Staple line is inked black and the appendiceal wall around defect are inked blue. Mucosa: Dark red. Fecalith: Not grossly identified. Additional: None. Grounds Crew Supervisor sections are submitted in (A1). JS (under the direct supervision of a pathologist) The Gross Description was prepared using a voice recognition system. The report was reviewed for accuracy; however, sound-alike word errors, addition and/or deletions may occur. If there is any question about this report, please contact Client Services. ADDITIONAL NOTES: Immunohistochemical and/or in situ hybridization studies if performed in this PATIENT NAME: SERENITY SALAZAR [facility] PATHOLOGY DATE OF : 00 REPORT #: [id number] PHYSICIAN: RAYMUNDO BOLDEN PCP: LAURA DAMON NP REPORT IS CONFIDENTIAL AND NOT TO BE RELEASED WITHOUT AUTHORIZATION [facility] [address] [place], [place] [address] Signed case included appropriate positive controls that reacted as expected. This test was developed and its performance characteristics determined by [facility]. It has not been cleared or approved by the U.S. Food and Drug Administration. The FDA has determined that such clearance or approval is not necessary. This test is used for clinical purposes. It should not be regarded as investigational or for research. [facility] is certified under the Clinical Laboratory Improvement Amendments of 1988 (CLIA) as qualified to perform high complexity clinical laboratory testing. PERFORMING LABORATORY: Technical component was performed by [facility], [address] [place] [address] (CLIA# [id number]). Professional interpretation was performed by [facility] - [facility] [address] [place] [id number] Diagnostician: Milo Bolck MD Pathologist Electronically Signed 04/06/2023 Copies: ~ PATIENT NAME: SERENITY SALAZAR PATHOLOGY DATE OF : 00 REPORT #: [id number] PHYSICIAN: RAYMUNDO PATHOLOGY PCP: LAURA DAMON NP REPORT IS CONFIDENTIAL AND NOT TO BE RELEASED WITHOUT AUTHORIZATION
== END 2023-04-04 13:50 | disposition home or self-care (01) | DRG 399 ==
LOC: ED 17:11 → CCU 18:40 → MS 18:40
PROVIDERS: Emergency Medicine; ADMIT Surgery; ATTEND Surgery
PROC: 0WJG4ZZ Inspection of Peritoneal Cavity, Percutaneous Endoscopic Approach (ICD-10-PCS; 2023-04-02)
PROC: 0W9H00Z Drainage of Retroperitoneum with Drainage Device, Open Approach (ICD-10-PCS; 2023-04-02)
PROC: 0DTJ0ZZ Resection of Appendix, Open Approach (ICD-10-PCS; principal; 2023-04-02 10:00)
DX: K35.33 Acute appendicitis with perforation, localized peritonitis, and gangrene, with abscess (principal); G89.29 Other chronic pain; E66.9 Obesity, unspecified; Z90.89 Acquired absence of other organs; Z79.899 Other long term (current) drug therapy; Z68.36 Body mass index [BMI] 36.0-36.9, adult
CPT/HCPCS: 00840; 36415; 80053; 81001; 84703; 85025; 87070; 87075; 87205; A9270; J0295; J0330; J1100; J1644; J1790; J1885; J2250; J2270; J2405; J2704; J2765; J3010; J3490; J7121